=== PATIENT | female | born 2000 | race Caucasian/White ===

== ENCOUNTER 2021-01-10 10:50 | Emergency (ER) | payer OTHER, SELFPAY ==
[2021-01-10 10:55] VITALS: BP 137/82; PULSE 85; RESP 14; TEMP 37.1; O2SAT 100; BMI 19.5
--- NOTE | 2021-01-10 10:58 | DI.US.S_ITS ---
PROCEDURE: US OB <= 14 WEEKS FETUS INDICATIONS: BLEEDING OUTSIDE/PRIOR DATING DATA: Last menstrual period (LMP): Not available. LMP-based estimated date of delivery (KARIN): Not available . First dating scan (date and location): 01/10/2021 at . Estimated date of delivery (KARIN) from first dating scan: 07/14/2021. TECHNIQUE: Real-time scanning was performed of the fetus and maternal pelvic organs, with image documentation. COMPARISON: None. FINDINGS: Embryo: There is a single living IUP. heart rate is 159 BPM. BPD: 13 weeks 4 days HC: 13 weeks 5 days AC: 13 weeks 6 days FL: 12 weeks 6 days The estimated gestational age is 13 weeks 4 days. No perigestational bleed. Measurement variability in dating: +/- 4 weeks by LMP, +/- 7 days by mean sac diameter (use before 6 weeks gestation if crown-rump length not able to be measured), +/- 5 days by crown-rump length (up to 8 weeks 6 days gestation), +/- 7 days by crown-rump length (up to 13 weeks 6 days gestation). Maternal organs: Ovaries were not examined. IMPRESSION: 1. A single living intrauterine gestation with an estimated gestational age of 13 weeks 4 days corresponding to ultrasound KARIN 01/10/2021. 2. No perigestational bleed. Dictated by: Pepe Grover M.D. on 01/10/2021 at 13:30 Approved by: Pepe Grover M.D. on 01/10/2021 at 13:33
[2021-01-10 11:35] LABS: Add Manual Diff / Slide Review NO; Basophils Absolute Auto 0 /uL (0-100); Basophils Percent Auto 0.3 % (0-2); Eosinophils Absolute Auto 0 /uL (0-450); Eosinophils Percent Auto 0.5 % (2-4); Hematocrit 37.1 % (36-46); Hemoglobin 12.4 g/dL (12.0-16.0); Lymphocytes Absolute Auto 1400 /uL (1100-4500); Lymphocytes Percent Auto 23.4 % (25-40); Mean Corpuscular HGB Conc 33.5 % (30-36); Mean Corpuscular Hemoglobin 28.8 PG (26-34); Monocytes Absolute Auto 300 /uL (0-900); Monocytes Percent Auto 5.3 % (3-14); Neutrophils Absolute Auto 4200 /uL (1500-7000); Neutrophils Percent Auto 70.5 % (50-75); Platelet Count 190 X10^3/uL (150-400); Red Blood Cell Count 4.31 X10^6/uL (4.0-5.2); Red Cell Distribution Width 13.1 % (11.6-14.8); White Blood Cell Count 5.9 X10^3/uL (4.5-11.0)
[2021-01-10 11:44] LABS: Alanine Aminotransferase 13 IU/L (<35); Albumin 4.2 g/dL (3.5-5.0); Albumin Globulin Ratio 1.5 (1.0-2.8); Alkaline Phosphatase 38 U/L (38-126); Aspartate Aminotransferase 20 IU/L (14-36); BUN Creatinine Ratio 16.7 (6-22); Bilirubin Total 0.6 mg/dL (0.2-1.3); Blood Urea Nitrogen 8 mg/dL (7-17); Calcium 9.4 mg/dL (8.4-10.2); Carbon Dioxide 20 mmol/L (22-32); Chloride 106 mmol/L (98-107); Estimated Glomerular Filt Rate > 60.0 mL/min (>60); Globulin 2.8 g/dL (1.7-4.1); Glucose 99 mg/dL (70-100); HEMOLYSIS < 15 (0-50); Potassium 3.7 mmol/L (3.4-5.1); Sodium 136 mmol/L (137-145)
[2021-01-10 12:26] LABS: HCG Quantitative /Beta subunit 134990 mIU/mL
[2021-01-10 12:36] VITALS: PULSE 97; O2SAT 98
[2021-01-10 12:37] VITALS: BP 120/63; PULSE 96; O2SAT 99
--- NOTE | 2021-01-10 13:54 | ED.PREGNANCY ---
HPI - General Chief complaint: Urogenital-Female Stated complaint: 12 weeks bleeding x3days Time Seen by Provider: 01/10/21 13:54 Source: patient Mode of arrival: Ambulatory Limitations: no limitations History of Present Illness HPI Narrative: Patient is a 20-year-old female presenting with 3 days of vaginal bleeding. She was actually seen and evaluated 3 days ago at [facility] she had an ultrasound which showed single live IUP P with a anterior placenta is. She was discharged followed up with her OBGYN there was a transvaginal ultrasound performed which confirmed an anterior placenta. Today she said that she had increased blood and blood clots. She has no abdominal pain dizziness or lightheadedness. She denies any nausea or vomiting. She is going through a pad about every 3 hours. MD Complaint: vaginal bleeding Pain Consistency: intermittent Related Data Allergies Allergy/AdvReac Type Severity Reaction Status Date / Time No Known Drug Allergies Allergy Verified 01/10/21 10:59 Review of Systems Review of Systems ROS Unobtainable: All systems reviewed & are unremarkable except as noted in HPI and below Constitutional Constitutional: Denies chills, Denies fever(s), Denies lethargy and Denies weakness ENT Ears, Nose, Mouth, and Throat: Denies vertigo and Denies dizziness Cardiovascular Cardiovascular: Denies chest pain, Denies irregular heart rhythm, Denies lightheadedness, Denies palpitations, Denies dyspnea, Denies dyspnea on exertion and Denies orthopnea Respiratory Respiratory: Denies cough, Denies dyspnea, Denies dyspnea on exertion and Denies wheezing Genitourinary Genitourinary: Reports as per HPI Genitourinary: Reports as per HPI Musculoskeletal Musculoskeletal: Denies arthralgias and Denies back pain Integumentary/Breasts Skin/Breast: Denies pruritus, Denies erythema, Denies rash and Denies wounds Neurologic Neurologic: Denies vertigo, Denies dizziness and Denies weakness Endocrine Endocrine: Denies palpitations Allergic/Immunologic Allergic/Immunologic: Denies wheezing PMFSH - Past Medical History Medical history: Reports no medical history 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 HEENT: Head atraumatic,EOMI, pupils reactive, face symmetric, moist mucous membranes CARDIOVASCULAR: Regular rate and rhythm without murmurs, rubs or gallops. RESPIRATORY: Breath sounds equal bilaterally, no wheezes rales or rhonchi. ABDOMEN: Soft, nontender. Normoactive bowel sounds all 4 quadrants. No guarding or rebound. EXTREMITIES: Normal range of motion, no clubbing or edema. Neurovascularly intact NEUROLOGICAL: Alert and oriented x4.Normal gait and speech. SKIN: Warm, dry, no laceration, no petechiae, no rashes or lesions. Course Orders Ordered: ED Orders 01/10/21 10:58 US OB <= 14 weeks fetus Stat 01/10/21 11:15 ABO RH Type Stat Complete Blood Count AUTO DIFF Stat Comprehensive Metabolic Panel Stat HCG Quantitative /Beta subunit Stat Vital Signs Vital signs: Vital Signs - 8 hr 01/10/21 10:55 01/10/21 12:36 01/10/21 12:37 Temperature 98.8 F Pulse Rate 85 97 H 96 H Respiratory Rate 14 Blood Pressure 137/82 120/63 Pulse Oximetry 100 98 99 01/10/21 14:21 Temperature Pulse Rate 90 Respiratory Rate 16 Blood Pressure 122/65 Pulse Oximetry 99 MDM - OB/Uterine Contractions Lab Data Attestation: I reviewed the patient's lab results. Result diagrams: 01/10/21 11:15 01/10/21 11:15 Labs: Lab Results 01/10/21 01/10/21 01/10/21 Range/Units 11:15 11:15 11:15 WBC 5.9 (4.5-11.0) X10^3/uL RBC 4.31 (4.0-5.2) X10^6/uL Hgb 12.4 (12.0-16.0) g/dL Hct 37.1 (36-46) % MCV 86.0 (80-100) fL MCH 28.8 (26-34) PG MCHC 33.5 (30-36) % RDW 13.1 (11.6-14.8) % Plt Count 190 (150-400) X10^3/uL Neut % (Auto) 70.5 (50-75) % Lymph % (Auto) 23.4 L (25-40) % [place] % (Auto) 5.3 (3-14) % Eos % (Auto) 0.5 L (2-4) % Baso % (Auto) 0.3 (0-2) % Neut # (Auto) 4200 (9993-9137) /uL Lymph # (Auto) 1400 (6596-0802) /uL [place] # (Auto) 300 (0-900) /uL Eos # (Auto) 0 (0-450) /uL Baso # (Auto) 0 (0-100) /uL Sodium 136 L (137-145) mmol/L Potassium 3.7 (3.4-5.1) mmol/L Chloride 106 (98-107) mmol/L Carbon Dioxide 20 L (22-32) mmol/L BUN 8 (7-17) mg/dL Creatinine 0.48 L (0.52-1.04) mg/dL Estimated GFR > 60.0 (>60) mL/min BUN/Creatinine Ratio 16.7 (6-22) Glucose 99 (70-100) mg/dL Calcium 9.4 (8.4-10.2) mg/dL Total Bilirubin 0.6 (0.2-1.3) mg/dL AST 20 (14-36) IU/L ALT 13 (<35) IU/L Alkaline Phosphatase 38 (38-126) U/L Total Protein 7.0 (6.3-8.2) g/dL Albumin 4.2 (3.5-5.0) g/dL Globulin 2.8 (1.7-4.1) g/dL Albumin/Globulin Ratio 1.5 (1.0-2.8) HCG, Quant 824011 mIU/mL Blood Type O Positive Urine Dip Bedside Urine Glucose Negative Bedside Urine Bilirubin - Negative Bedside Urine Ketone - Negative Urine Specific [place] 1.015 Bedside Urine Occult Blood ++ Bedside Urine pH 6 Bedside Urine Protein - Negative Bedside Urine Urobilinogen - Negative Bedside Urine Nitrite - Negative Bedside Urine Leukocytes - Negative Esterase Imaging Data US - OB: Radiologist's Impression: PROCEDURE: US OB <= 14 WEEKS FETUS INDICATIONS: BLEEDING OUTSIDE/PRIOR DATING DATA: Last menstrual period (LMP): Not available. LMP-based estimated date of delivery (KARIN): Not available . First dating scan (date and location): 01/10/2021 at . Estimated date of delivery (KARIN) from first dating scan: 07/14/2021. TECHNIQUE: Real-time scanning was performed of the fetus and maternal pelvic organs, with image documentation. COMPARISON: None. FINDINGS: Embryo: There is a single living IUP. heart rate is 159 BPM. BPD: 13 weeks 4 days HC: 13 weeks 5 days AC: 13 weeks 6 days FL: 12 weeks 6 days The estimated gestational age is 13 weeks 4 days. No perigestational bleed. Measurement variability in dating: +/- 4 weeks by LMP, +/- 7 days by mean sac diameter (use before 6 weeks gestation if crown-rump length not able to be measured), +/- 5 days by crown-rump length (up to 8 weeks 6 days gestation), +/- 7 days by crown-rump length (up to 13 weeks 6 days gestation). Maternal organs: Ovaries were not examined. IMPRESSION: 1. A single living intrauterine gestation with an estimated gestational age of 13 weeks 4 days corresponding to ultrasound KARIN 01/10/2021. 2. No perigestational bleed. Dictated by: Pepe Grover M.D. on 01/10/2021 at 13:30 Approved by: Pepe Grover M.D. on 01/10/2021 at 13:33 MDM Narrative Medical decision making narrative: Records from [facility] have been received and reviewed by myself. At this time patient is hemodynamically stable. She has multiple studies that show she has a low lying placenta. At this time recommend follow-up with her OBGYN for a 2nd time. Discussed warning signs with her and when to return to the emergency department Discharge Plan Departure Patient Disposition: Home Clinical Impression: Vaginal bleeding Instructions: Early Bleeding Activity Restrictions/Additional Instructions: [id number] *You have been diagnosed with vaginal bleeding *What to do: Bleeding is likely due to a low lying placenta. This should resolve as her progresses. Continue pelvic rest which is nothing in her out of vagina. May try and elevate your legs this may also help improve placental circulation. Monitor bleeding. *Continue to take medications as directed *Follow up with your primary care provider in 2-3 days, please call your OBGYN to schedule follow-up appointment *Return to ER if you should have heavy vaginal bleeding more than 1-2 pads in in hour. Severe cramping, dizziness, lightheadedness or any new, worsening or concerning symptoms Referrals: [facility] [address] [employer] [facility] [employer]BBER TILE FLOOR LAYER [Provider Group] Stand Alone Forms: Work Release Note
[2021-01-10 14:21] VITALS: BP 122/65; PULSE 90; RESP 16; O2SAT 99
== END 2021-01-10 14:21 | disposition home or self-care (01) ==
PROVIDERS: Emergency Provider Emergency Medicine
DX: O46.91 Antepartum hemorrhage, unspecified, first trimester (principal); Z3A.12 12 weeks gestation of pregnancy
CPT/HCPCS: 36415; 76801; 80053; 81003; 84702; 85025; 86900; 86901; 99284

== ENCOUNTER 2021-01-15 08:19 | Emergency (ER) | payer OTHER, SELFPAY ==
--- NOTE | 2021-01-15 08:27 | ED_ITS ---
HPI - General Chief complaint: Urogenital-Female Stated complaint: BLEEDING AND CRAMPING, 13 WKS, 3 DAYS Time Seen by Provider: 01/15/21 08:27 History of Present Illness HPI Narrative: 20-year-old at 13 weeks, O+ blood type, presents with bleeding and cramping. She was seen on January 10 with similar complaints and was seen on January 07 at [facility] with similar complaints. [facility] had done an ultrasound that showed a single live IUP with anterior, low- lying placenta. She was seen in follow-up the next day by her OBGYN with a transvaginal ultrasound confirming anterior low-lying placenta.. Ob ultrasound on the showed no aaliyah gestational bleed and a single IUP. Related Data Allergies Allergy/AdvReac Type Severity Reaction Status Date / Time No Known Drug Allergies Allergy Verified 01/10/21 10:59 Review of Systems Review of Systems Narrative: Pertinent positive and negative findings as per HPI Remainder of review of systems is otherwise unremarkable for Constitutional: Fevers, chills, weakness, her dizziness when standing up CV: Chest pain, palpitations, Respiratory: Cough, wheeze, dyspnea GI: Nausea, vomiting, diarrhea, : Dysuria, hematuria, PMFSH - Past Medical History Medical history: Reports no medical history Exam Narrative Exam Narrative: General: Alert appropriate in no acute distress Respiratory: Able to speak in full sentences, no obvious respiratory distress Skin: No obvious rashes, warm and dry Neurologic: Grossly intact no obvious asymmetries or abnormalities Psych: appropriate insight and affect, cooperative Bedside ultrasound: Anterior low-lying placenta with 3 mm x 1 cm area of bleed just above the internal cervical os. The bleed does not appear to track further up the placenta/anterior wall of the uterus. Cervix itself measures 4.1 cm and there is no funneling appreciated. Fetus is moving an active with a heart rate at 150 and appropriate amounts of amniotic fluid appreciated. Initial Vital Signs Initial Vital Signs: Vital Signs Temperature 99.0 F 01/15/21 08:34 Pulse Rate 85 01/15/21 08:34 Respiratory Rate 16 01/15/21 08:34 Blood Pressure 131/80 01/15/21 08:34 Pulse Oximetry 100 01/15/21 08:34 Course Vital Signs Vital signs: Vital Signs - 8 hr 01/15/21 08:34 Temperature 99.0 F Pulse Rate 85 Respiratory Rate 16 Blood Pressure 131/80 Pulse Oximetry 100 MDM - OB/Uterine Contractions MDM Narrative Medical decision making narrative: 20-year-old at 13 and half weeks gestational age with low-lying anterior placenta and intermittent vaginal bleeding since 9 weeks. She has been on pelvic rest. She has had multiple ultrasounds showing viable fetus and confirming the low-lying anterior placenta. Today she had some cramping associated with some spotting. She notes this weekend she had had minimal symptoms. She called her on-call OBGYN who asked that she come to the ER for further evaluation. Bedside ultrasound looks like the anterior lip of the placenta perhaps has a very small subchorionic hemorrhage with a viable fetus. Care is reviewed with Dr. Tovar who is OBGYN on-call today. Did not have any additional suggestions be on what we were doing already and agreed that a week to follow-up as scheduled on the , was appropriate. Discharge Plan Departure Patient Disposition: Home Clinical Impression: Vaginal bleeding Qualifiers: Weeks of gestation: 13 weeks Qualified Code(s): Z3A.13 - 13 weeks gestation of Instructions: DI for Vaginal Bleeding During Activity Restrictions/Additional Instructions: Thank you for coming in today Your baby looks beautiful. Your placenta it looks as described previously. You likely will continue to have a small bit of bleeding intermittently until your uterus gross enough that the placenta is further away from the opening of your cervix. One week for follow-up, as scheduled on January 22 is very appropriate. Please keep this appointment with Dr. Mendenhall. If you have changing, worsening or new symptoms it is still appropriate to come back to the emergency department. Please make sure you continue pelvic rest which means no fingers, toys, penis is in your vagina, no orgasm and try not to lift more than 10 lb. Good luck with the rest of your ! Referrals: Tatum Mendenhall DO [Physician] -
[2021-01-15 08:34] VITALS: BP 131/80; PULSE 85; RESP 16; TEMP 37.2; O2SAT 100
--- NOTE | 2021-01-15 08:52 | PC.NURSE ---
dr. tavares did a bedside US.
== END 2021-01-15 08:59 | disposition home or self-care (01) ==
PROVIDERS: Emergency Provider Emergency Medicine
DX: O46.91 Antepartum hemorrhage, unspecified, first trimester (principal); Z3A.13 13 weeks gestation of pregnancy
CPT/HCPCS: 99281

== ENCOUNTER → 2021-01-22 14:16 | Outpatient (CLI) | payer OTHER, SELFPAY ==
[2021-01-22 17:09] LABS: Urine N gonorrhoeae NOT DETECTED
[2021-01-22 17:24] LABS: Urine Chlamydia NOT DETECTED
== END ==
PROVIDERS: Visit Provider Family Medicine
DX: Z11.3 Encounter for screening for infections with a predominantly sexual mode of transmission (principal); Z11.8 Encounter for screening for other infectious and parasitic diseases; Z3A.14 14 weeks gestation of pregnancy
CPT/HCPCS: 87491; 87591

== ENCOUNTER → 2021-01-26 15:58 | Outpatient (CLI) | payer OTHER, SELFPAY ==
[2021-01-26 16:13] LABS: RBC Urine None Seen (0-5/HPF)
[2021-01-26 16:30] LABS: Appearance Urine UA CLEAR; Bilirubin Urine UA NEGATIVE (NEGATIVE); Color Urine UA YELLOW; Glucose Urine UA NEGATIVE (Negative); Ketones Urine UA NEGATIVE (NEGATIVE); Leukocyte Esterase Urine UA NEGATIVE (NEGATIVE); Nitrite Urine UA NEGATIVE (Negative); Occult Blood Urine UA TRACE-LYSED (Negative); Protein Urine UA NEGATIVE (Negative); Urobilinogen Urine UA 0.2 E.U./dL (0.2)
[2021-01-26 16:42] LABS: Amorphous Sediment Urine 1+; Bacteria Urine Moderate (10-30); Mucus Urine 1+ (Negative); Squamous Epithelial Cell Urine 1-5 /HPF (0-5/HPF); WBC Urine 5-10/HPF (0-5/HPF)
[2021-01-26 16:43] LABS: Culture Indicated Urine Specimen Cultured
== END ==
PROVIDERS: Referring Provider Family Medicine; Visit Provider Family Medicine
DX: Z34.90 Encounter for supervision of normal pregnancy, unspecified, unspecified trimester (principal); R10.2 Pelvic and perineal pain; Z3A.13 13 weeks gestation of pregnancy
CPT/HCPCS: 81001; 87086

== ENCOUNTER → 2021-02-02 12:43 | Outpatient (CLI) | payer OTHER, SELFPAY ==
--- NOTE | 2021-02-02 12:44 | DI.US.S_ITS ---
PROCEDURE: US OB FOLLOW UP INDICATIONS: FOLLOW UP FROM 01/10/2021 OUTSIDE/PRIOR DATING DATA: First dating scan (date and location): 01/10/2021, [facility] . Estimated date of delivery (KARIN) from first dating scan: 07/14/2021 . TECHNIQUE: Real-time scanning was performed of the fetus, with image documentation. Endovaginal scanning: Not performed COMPARISON: None. FINDINGS: A single living intrauterine gestation is present. Presentation: Vertex. Placenta: Placental position is anterior , without previa. Amniotic fluid index: 11.0 cm, normal range is 5-24 cm. heart rate: 141 beats per minute. Maternal cervical canal: Not well visualized. Normal lower limit is 2.5 cm. Estimated gestational age from initial scan: 16 week 6 day . IMPRESSION: Single live intrauterine consistent with a 16 week 6 day gestation. No evidence of perigestational bleed. Dictated by: Kayden Suárez M.D. on 02/02/2021 at 12:44 Approved by: Kayden Suárez M.D. on 02/02/2021 at 12:50
== END ==
PROVIDERS: Referring Provider Family Medicine; Visit Provider Family Medicine
DX: O20.9 Hemorrhage in early pregnancy, unspecified (principal); Z3A.16 16 weeks gestation of pregnancy
CPT/HCPCS: 76816

== ENCOUNTER → 2021-03-02 09:06 | Outpatient (CLI) | payer OTHER, SELFPAY ==
--- NOTE | 2021-03-02 09:07 | DI.US.S_ITS ---
PROCEDURE: US OB >= 14 WEEKS FETUS INDICATIONS: ANATOMY OUTSIDE/PRIOR DATING DATA: First dating scan (date and location): 01/10/2021 . Estimated date of delivery (KARIN) from first dating scan: 07/14/2021 . TECHNIQUE: Real-time scanning was performed of the fetus, with image documentation and biometric measurements. Endovaginal scanning: No COMPARISON: None. FINDINGS: General: A single living intrauterine gestation is present. Presentation: Vertex. Placenta: Placental position is anterior , without previa. Amniotic fluid index: 14.1 cm, normal range is 5-24 cm. heart rate: 139 beats per minute. Maternal cervical canal: 3.7 cm long. Normal lower limit is 2.5 cm. biometrics: Biparietal diameter: 20 weeks 3 days Head circumference: 20 weeks 1 day Abdominal circumference: 20 weeks 4 days Femur length: 20 weeks 1 day Estimated gestational age from initial scan: 20 weeks 6 days Composite gestational age from present scan: 20 weeks 2 days Estimated weight and percentile: 346 g; 19 percentile Measurement variability for biometric dating: +/- 7 days from 14 weeks to 15 weeks 6 days gestation, +/- 10 days from 16 weeks to 21 weeks 6 days gestation, +/- 2 weeks from 22 weeks to 27 weeks 6 days gestation, +/- 3 weeks for 28 weeks gestation or later. weight reference: 4500 g or EFW >90/95% is considered macrosomia or large for gestational age. EFW <10% is small for gestational age. EFW 5% or less is considered intra-uterine growth restriction. Anatomic survey: Neuro: Ventricles are non-dilated at less than 10 mm. Cisterna magna is normal at 3-11 mm. Cerebellum is normal in size and morphology. Nuchal skin fold: Normal at less than 6 mm between 14-21 weeks gestational age. Face: Nose and lips, facial profile are normal. Spine: No evidence for spina bifida. Heart: 4-chambered heart is present, with normal ventricular outflow tracts. Diaphragm: Diaphragm is intact. Stomach: Left-sided stomach is present. Kidneys: No hydronephrosis. Normal is less than 5 mm in 2nd trimester, less than 7 mm in 3rd trimester. Cord: 3-vessel cord has orthotopic insertion. Marginal cord insertion site roughly 9 mm from the placental edge. Bladder: Normal in size. Extremities: All 4 extremities identified. IMPRESSION: 1. Normal interval growth. 2. Normal anatomic survey. 3. Marginal cord insertion site. Dictated by: Harley RODRIGUES Interpreted: Jone Pascal MD on 03/02/2021 at 11:41 Transcribed by: ARIADNE on 03/02/2021 at 14:06 Approved by: Jone Pascal M.D. on 03/02/2021 at 17:00
== END ==
PROVIDERS: Referring Provider Family Medicine; Visit Provider Family Medicine
DX: Z36.89 Encounter for other specified antenatal screening (principal); Z3A.20 20 weeks gestation of pregnancy
CPT/HCPCS: 76811

== ENCOUNTER 2021-03-20 14:40 | Observation (INO) | payer OTHER, SELFPAY ==
--- NOTE | 2021-03-20 15:17 | DI.US.S_ITS ---
PROCEDURE: US OB LIMITED INDICATIONS: CRAMPING OUTSIDE/PRIOR DATING DATA: Last menstrual period (LMP): Mild available. LMP-based estimated date of delivery (KARIN): Not available. First dating scan (date and location): 01/10/2021 at . Estimated date of delivery (KARIN) from first dating scan: 07/14/2021. TECHNIQUE: Real-time scanning was performed of the fetus, with image documentation and biometric measurements. Endovaginal scanning: Performed. COMPARISON: None. FINDINGS: General: A single living intrauterine gestation is present. Presentation: Transverse head to the left. Placenta: Placental position is anterior, without previa. Amniotic fluid index: 13.2 cm, normal range is 5-24 cm. heart rate: 133 beats per minute. Maternal cervical canal: 2.8 cm long. Normal lower limit is 2.5 cm. biometrics: Not performed. Estimated gestational age from initial scan: 23 weeks 3 days. Other: Possible venous lakes in placenta. IMPRESSION: 1. A single living intrauterine gestation is present. 2. Cervix is shortened measuring 2.8 cm long. 3. Possible venous lakes in the placenta. Dictated by: Pepe Grover M.D. on 03/20/2021 at 16:48 Approved by: Pepe Grover M.D. on 03/20/2021 at 16:56
--- NOTE | 2021-03-20 16:05 | PM.OBTRLD ---
Visit Information Visit Information Date of evaluation: 03/20/21 Primary OB Provider: Tatum Mendenhall On-call OB Provider: Lorenzo Kramer Reason for Evaluation: Yes pre-term labor Comments/Additional reasons for admission: Patient is a 21-year-old at 22 weeks and 4 days gestation who presented to clinic today with lower abdominal pain and cramping though denied bleeding or leaking. Pain was more severe last night in her left upper quadrant. Today it is mostly lower abdominal with slight pain in her left upper quadrant. was complicated by bleeding in the first trimester which resolved and has not recurred. She has not been sexually active. Denies vaginal discharge or urinary symptoms. Denies diarrhea or vomiting. Vital Signs Vital Signs: Temperature 36.4? blood pressure 105/60 heart rate 85 PFSH Medical History (Updated 03/20/21 @ 18:17 by Tatum Mendenhall DO) Iron deficiency anemia (~2018) Nasal fracture (~06/2018) Surgical History (Updated 02/02/21 @ 20:09 by Ernestine Duffy) Anesthesia Hx of tonsillectomy (~2008) Status post breast reduction (~2016) Family History Father Myocardial infarction Stented coronary artery Grandmother Breast cancer Mother No problems noted. Grandmother No problems noted. Grandfather Diabetes mellitus Grandfather Stented coronary artery Social History marital status: number of children: 0 household members: spouse lives independently: Yes caregiver/support person: No housing: house pets and animals: Yes (1 dog: safe & aware. 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 ) Type(s) of exercise: walking (Usually 3-4 times a week.) frequency: does not exercise (Currently refraining from exercise due to vaginal bleeding. ) Evaluation Evaluation Baseline heart rate: 135 Variability: Moderate (11-25) monitor accelerations: Present Monitor Decelerations: Absent Category of Tracing: Reactive Diagnosis, Plan/Disposition Final Diagnosis (1) 22 weeks gestation of : Status: Acute (2) contractions: Status: Acute Plan/Disposition Plan: 21-year-old at 22 weeks and 4 days gestation with concern for contractions and labor. She did have contractions on the monitor though did not feel them consistently. She was monitored in the center for 2-1/2 hours. Urine was negative. Contractions dissipated. She was having some at the end of her stay but denied feeling them at all. Ultrasound was completed and significant for cervical length of 2.8 cm, АЛЕКСАНДР of 13.2 and possible placental lakes. She has not had any bleeding recently though did have considerable bleeding early in the . fibronectin was negative. Discussed with patient that she does have a slightly shortened cervix but overall reassuring with negative FN and no funneling of the cervix. Advised her to rest for the next week and hydrate well. Discussed with Dr. Kramer, bow making machine operator who recommended repeat ultrasound for cervical length in a week and follow up in clinic. Patient counseled extensively to call or return for cramping, severe pain, contractions, bleeding or leaking of fluid. She voiced her understanding and was very appreciative. OB Disposition: home
[2021-03-20 17:02] LABS: Fetal Fibronectin Negative
== END 2021-03-20 17:40 | disposition home or self-care (01) ==
PROVIDERS: Admitting Provider Family Medicine; Referring Provider Family Medicine; Visit Provider Family Medicine
DX: O47.02 False labor before 37 completed weeks of gestation, second trimester (principal); Z3A.22 22 weeks gestation of pregnancy
CPT/HCPCS: 59025; 59050; 76815; 76817; 82731; G0378; G0379

== ENCOUNTER → 2021-03-23 13:15 | Outpatient (CLI) | payer OTHER, SELFPAY ==
--- NOTE | 2021-03-23 13:20 | DI.US.S_ITS ---
PROCEDURE: US OB LIMITED INDICATIONS: CRAMPING; CERVICAL LENGTH OUTSIDE/PRIOR DATING DATA: Last menstrual period (LMP): Unknown. LMP-based estimated date of delivery (KARIN): Unknown. First dating scan (date and location): 01/10/2021. Estimated date of delivery (KARIN) from first dating scan: 07/14/2021. TECHNIQUE: Real-time scanning was performed of the fetus, with image documentation. COMPARISON: [facility], , OB LIMITED, 03/20/2021, 14:49. FINDINGS: A single living intrauterine gestation is present. Presentation: Vertex Placenta: Placental position is anterior, without previa. Amniotic fluid index: Not measured. Amount of amniotic fluid is visually within normal limits. heart rate: 137 beats per minute. Maternal cervical canal: 3.3 cm long. Estimated gestational age from initial scan: 23 weeks, 6 days. IMPRESSION: Single live intrauterine with fetus in vertex presentation. heart rate is 137 beats per minute. Visually normal amount of amniotic fluid. Cervix is closed. Cervical length is 3.3 cm and is within normal limits. Dictated by: Ryan Brian M.D. on 03/23/2021 at 14:09 Approved by: Ryan Brian M.D. on 03/23/2021 at 14:11
== END ==
PROVIDERS: PCP Family Medicine; Referring Provider Family Medicine; Visit Provider Family Medicine
DX: Z36.86 Encounter for antenatal screening for cervical length (principal); Z3A.23 23 weeks gestation of pregnancy
CPT/HCPCS: 76815

== ENCOUNTER → 2021-04-09 07:13 | Outpatient (CLI) | payer OTHER, SELFPAY ==
--- NOTE | 2021-04-09 07:14 | DI.US.S_ITS ---
PROCEDURE: US OB LIMITED INDICATIONS: EFW; CERVICAL LENGTH, АЛЕКСАНДР OUTSIDE/PRIOR DATING DATA: First dating scan (date and location): 01/10/2021 at [facility]. Estimated date of delivery (KARIN) from first dating scan: 07/14/2021. TECHNIQUE: Real-time scanning was performed of the fetus, with image documentation and biometric measurements. Endovaginal scanning: Not performed. COMPARISON: [facility], , OB LIMITED, 03/23/2021, 13:50. FINDINGS: General: A single living intrauterine gestation is present. Presentation: Vertex. Placenta: Placental position is anterior, without previa. Amniotic fluid index: 13.8 cm, normal range is 5-24 cm. Largest vertical pocket is 5.2 cm. heart rate: 135 beats per minute. Maternal cervical canal: 3.1 cm long and closed. Normal lower limit is 2.5 cm. biometrics: Biparietal diameter: 6.5 cm, 26 weeks 1 day Head circumference: 23.9 cm, 26 weeks 0 days Abdominal circumference: 21.1 cm, 25 weeks 5 days Femur length: 4.7 cm, 25 weeks 5 days Estimated gestational age from initial scan: 26 weeks 2 days. Composite gestational age from present scan: 25 weeks 6 days. Estimated weight and percentile: 847 grams, 19th percentile Measurement variability for biometric dating: +/- 7 days from 14 weeks to 15 weeks 6 days gestation, +/- 10 days from 16 weeks to 21 weeks 6 days gestation, +/- 2 weeks from 22 weeks to 27 weeks 6 days gestation, +/- 3 weeks for 28 weeks gestation or later. weight reference: 4500 g or EFW >90/95% is considered macrosomia or large for gestational age. EFW <10% is small for gestational age. EFW 5% or less is considered intra-uterine growth restriction. Other: Not applicable. IMPRESSION: 1. Single live intrauterine with appropriate interval growth. 2. Cervical length normal at 3.1 cm. 3. Amniotic fluid index within normal limits. Dictated by: Bharathi Grijalva M.D. on 04/09/2021 at 9:31 Approved by: Bharathi Grijalva M.D. on 04/09/2021 at 9:35
== END ==
PROVIDERS: Referring Provider Family Medicine; Visit Provider Family Medicine
DX: Z36.86 Encounter for antenatal screening for cervical length (principal); Z3A.25 25 weeks gestation of pregnancy
CPT/HCPCS: 76815

== ENCOUNTER → 2021-04-21 08:12 | Outpatient (CLI) | payer OTHER, SELFPAY ==
[2021-04-21 11:07] LABS: Hematocrit 30.2 % (36-46); Hemoglobin 10.1 g/dL (12.0-16.0)
[2021-04-21 11:22] LABS: GTT (PREG) 1 Hour PP 50gm Dose 65 mg/dL (76-139)
== END ==
PROVIDERS: Referring Provider Family Medicine; Visit Provider Family Medicine
DX: Z34.90 Encounter for supervision of normal pregnancy, unspecified, unspecified trimester (principal); Z3A.26 26 weeks gestation of pregnancy
CPT/HCPCS: 36415; 82950; 85014; 85018

== ENCOUNTER 2021-05-09 10:35 | Observation (INO) | payer OTHER, SELFPAY ==
[2021-05-09 12:24] LABS: Appearance Urine UA CLEAR; Bilirubin Urine UA NEGATIVE (NEGATIVE); Glucose Urine UA NEGATIVE (Negative); Ketones Urine UA NEGATIVE (NEGATIVE); Leukocyte Esterase Urine UA NEGATIVE (NEGATIVE); Nitrite Urine UA NEGATIVE (Negative); Occult Blood Urine UA NEGATIVE (Negative); Protein Urine UA NEGATIVE (Negative); Specific Gravity Urine UA <=1.005 (1.000-1.035); Urobilinogen Urine UA 0.2 E.U./dL (0.2)
[2021-05-09 12:25] LABS: Color Urine UA STRAW
--- NOTE | 2021-05-09 12:55 | DI.US.S_ITS ---
PROCEDURE: US OB >= 14 WEEKS FETUS INDICATIONS: CERVICAL LENGTH OUTSIDE/PRIOR DATING DATA: Last menstrual period (LMP): Not known. LMP-based estimated date of delivery (KARIN): Not applicable. First dating scan (date and location): January 10, 2021. Estimated date of delivery (KARIN) from first dating scan: July 14, 2021. TECHNIQUE: Real-time scanning was performed of the fetus, with image documentation and biometric measurements. Endovaginal scanning: Performed COMPARISON: None. FINDINGS: General: A single living intrauterine gestation is present. Presentation: Vertex Placenta: Placental position is anterior, without previa. Amniotic fluid index: Not evaluated heart rate: 141 beats per minute. Maternal cervical canal: Closed in 2.8 cm long. Normal lower limit is 2.5 cm. biometrics: Not evaluated in current exam Estimated gestational age from initial scan: 30 weeks 4 days. IMPRESSION: 1. Single living intrauterine . 2. Cervix closed and 2.8 centimeters in length. Dictated by: Tomasa Hunter MD, PhD on 05/09/2021 at 14:40 Approved by: Tomasa Hunter MD, PhD on 05/09/2021 at 14:42
--- NOTE | 2021-05-09 13:15 | P.TNLD_ITS ---
Visit Information Visit Information Date of evaluation: 05/09/21 Primary OB Provider: Tatum Mendenhall On-call OB Provider: Connie Calabrese Reason for Evaluation: Yes pre-term labor Comments/Additional reasons for admission: 21yo at 29w5d who presented with increased cramping at home. She has not been timing it. She was in L&D for similar on 03/20 with no cervical dilation, negative fibronectin, and cervi teresita length of 2.8. Repeat cervical length the next week was increased. The pt reports the cramping is not as painful as it was then, but is still increased. She denies any vaginal bleeding or LOF. She is feeling her baby move regularly. She did just go on a long walk today. [facility] Medical History (Updated 03/26/21 @ 14:13 by Tatum Mendenhall DO) Iron deficiency anemia (~2018) Nasal fracture (~06/2018) Surgical History (Updated 02/02/21 @ 20:09 by Ernestine Duffy) Anesthesia Hx of tonsillectomy (~2008) Status post breast reduction (~2016) Family History Father Myocardial infarction Stented coronary artery Grandmother Breast cancer Mother No problems noted. Grandmother No problems noted. Grandfather Diabetes mellitus Grandfather Stented coronary artery Social History marital status: number of children: 0 household members: spouse lives independently: Yes caregiver/support person: No housing: house pets and animals: Yes (1 dog: safe & aware. 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 ) Type(s) of exercise: walking (Usually 3-4 times a week.) frequency: does not exercise (Currently refraining from exercise due to vaginal bleeding. ) Objective Labs Labs: Laboratory Results - last 24 hr 05/09/21 11:33 Urine Color Straw Urine Appearance Clear Urine pH 7.0 Ur Specific [place] <=1.005 Urine Protein Negative Urine Glucose (UA) Negative Urine Ketones Negative Urine Occult Blood Negative Urine Nitrate Negative Urine Bilirubin Negative Urine Urobilinogen 0.2 Ur Leukocyte Esterase Negative Evaluation Evaluation Baseline heart rate: 130 Variability: Moderate (11-25) monitor accelerations: Present Monitor Decelerations: Absent Comments: Contractions every 6-10 minutes Diagnosis, Plan/Disposition Final Diagnosis (1) contractions: Status: Acute Plan/Disposition Plan: 21yo at 29w5d who presented with increased cramping at home. Contractions spaced signficantly with prolonged monitoring. Cervical length stable at 2.8. Recommend relative rest at home for the pt. Discussed hydration. F/U next week with Dr Mendenhall scheduled. Safe for d/c home. OB Disposition: home
== END 2021-05-09 13:39 | disposition home or self-care (01) ==
PROVIDERS: Admitting Provider Family Medicine; Referring Provider Family Medicine; Visit Provider Family Medicine
DX: O47.03 False labor before 37 completed weeks of gestation, third trimester (principal); Z3A.29 29 weeks gestation of pregnancy
CPT/HCPCS: 59025; 59050; 76811; 76817; 81003; G0378; G0379

== ENCOUNTER 2021-06-01 20:46 | Outpatient (CLI) | payer OTHER, SELFPAY | END 2021-06-01 21:27 | disposition home or self-care (01) | LOC: OB 06-05 11:59 | PROVIDERS: Referring Provider Family Medicine; Visit Provider Family Medicine | DX: Z03.71 Encounter for suspected problem with amniotic cavity and membrane ruled out (principal); Z3A.33 33 weeks gestation of pregnancy | CPT/HCPCS: 59025; 84112; G0378; G0379 ==

== ENCOUNTER 2021-06-12 20:35 | Observation (INO) | payer OTHER, SELFPAY ==
[2021-06-12 21:01] LABS: Appearance Urine UA CLEAR; Bilirubin Urine UA NEGATIVE (NEGATIVE); Glucose Urine UA NEGATIVE (Negative); Ketones Urine UA NEGATIVE (NEGATIVE); Leukocyte Esterase Urine UA TRACE (NEGATIVE); Nitrite Urine UA NEGATIVE (Negative); Occult Blood Urine UA NEGATIVE (Negative); Protein Urine UA NEGATIVE (Negative); Specific Gravity Urine UA <=1.005 (1.000-1.035); Urobilinogen Urine UA 0.2 E.U./dL (0.2)
[2021-06-12 21:11] LABS: Color Urine UA Straw; pH Urine UA 6.5 (4.5-8.0)
[2021-06-12 21:12] LABS: Bacteria Urine Many (>30); Culture Indicated Urine Specimen Cultured; RBC Urine None Seen (0-5/HPF); WBC Urine 0-1/HPF (0-5/HPF)
--- NOTE | 2021-06-12 21:33 | P.TNLD_ITS ---
Visit Information Visit Information Date of evaluation: 06/12/21 Primary OB Provider: Tatum Mendenhall On-call OB Provider: Connie Calabrese Reason for Evaluation: Yes rule out labor Comments/Additional reasons for admission: 21yo at 34w4d who presented with regular cramping. Pt reports cramping starting around 2pm, approximately every 10 minutes. It is a 7/10 on the pain scale. She has a constant pain in her lower abdomen and an intermittent, more intense pain across the top of her fundus. She also had acute onset of more intense very low back pain. She denies any vaginal bleeding or LOF. She is feeling her baby move regularly. [facility] Medical History Iron deficiency anemia (~2018) Nasal fracture (~06/2018) Surgical History Anesthesia Hx of tonsillectomy (~2008) Status post breast reduction (~2016) Family History Father Myocardial infarction Stented coronary artery Grandmother Breast cancer Mother No problems noted. Grandmother No problems noted. Grandfather Diabetes mellitus Grandfather Stented coronary artery Social History marital status: number of children: 0 household members: spouse lives independently: Yes caregiver/support person: No housing: house pets and animals: Yes (1 dog: safe & aware. 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 ) Type(s) of exercise: walking (Usually 3-4 times a week.) frequency: does not exercise (Currently refraining from exercise due to vaginal bleeding. ) Objective Labs Labs: Laboratory Results - last 24 hr 06/12/21 20:48 Urine Color Straw Urine Appearance Clear Urine pH 6.5 Ur Specific [place] <=1.005 Urine Protein Negative Urine Glucose (UA) Negative Urine Ketones Negative Urine Occult Blood Negative Urine Nitrate Negative Urine Bilirubin Negative Urine Urobilinogen 0.2 Ur Leukocyte Esterase Trace H Urine RBC None seen Urine WBC 0-1/hpf Urine Bacteria Many (>30) H Ur Culture Indicated? Specimen cultured Evaluation Evaluation Baseline heart rate: 125 Variability: Moderate (11-25) monitor accelerations: Present Monitor Decelerations: Absent Diagnosis, Plan/Disposition Final Diagnosis (1) contractions: Status: Acute Plan/Disposition Plan: 21yo at 34w4d who presented with regular cramping. Pt with contractions every 9 minutes at arrival. U/A with many bacteria and trace LE, but otherwise negative. Will await culture result. Pts contractions did not improve with significant oral hydration, and urine was very dilute. Oral Nifedipine x 4 was administered, and the pts contractions resolved. She was monitored for a prolonged period after, without return of her contractions. She was discharged home with strict return precautions. She has f/u with her primary OB scheduled. OB Disposition: home
[2021-06-12] MEDS: NIFEdipine 10 MG CAPSULE PO ×4 (22:28→23:28)
== END 2021-06-12 23:58 | disposition home or self-care (01) ==
PROVIDERS: Admitting Provider Family Medicine; PCP Family Medicine; Referring Provider Family Medicine; Visit Provider Family Medicine
DX: O47.03 False labor before 37 completed weeks of gestation, third trimester (principal); Z3A.34 34 weeks gestation of pregnancy
CPT/HCPCS: 59025; 59050; 81001; 87086; G0378; G0379

== ENCOUNTER → 2021-06-25 09:59 | Outpatient (CLI) | payer OTHER, SELFPAY ==
[2021-06-26 09:38] LABS: Strep Grp B PCR NEG for Grp B Strep
== END ==
PROVIDERS: PCP Family Medicine; Visit Provider Family Medicine
DX: Z34.90 Encounter for supervision of normal pregnancy, unspecified, unspecified trimester (principal); Z3A.36 36 weeks gestation of pregnancy
CPT/HCPCS: 87653

== ENCOUNTER 2021-07-10 19:37 | Outpatient (CLI) | payer OTHER, SELFPAY ==
--- NOTE | 2021-07-10 21:05 | PM.OBTRLD ---
Visit Information Visit Information Date of evaluation: 07/10/21 Primary OB Provider: Tatum Mendenhall On-call OB Provider: Lorenzo Kramer Reason for Evaluation: Yes other Comments/Additional reasons for admission: 38 week EGA, R/O SROM earlier this afternoon [facility] Medical History Iron deficiency anemia (~2018) Nasal fracture (~06/2018) Surgical History Anesthesia Hx of tonsillectomy (~2008) Status post breast reduction (~2016) Family History Father Myocardial infarction Stented coronary artery Grandmother Breast cancer Mother No problems noted. Grandmother No problems noted. Grandfather Diabetes mellitus Grandfather Stented coronary artery Social History marital status: number of children: 0 household members: spouse lives independently: Yes caregiver/support person: No housing: house pets and animals: Yes (1 dog: safe & aware. 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 ) Type(s) of exercise: walking (Usually 3-4 times a week.) frequency: does not exercise (Currently refraining from exercise due to vaginal bleeding. ) Evaluation Evaluation Baseline heart rate: 120 Variability: Moderate (11-25) monitor accelerations: Present Monitor Decelerations: Absent Category of Tracing: Reactive Status: Category l Non-invasive Membranes Rupture Test: negative Comments: Patient not in labor, FHR tracing is reassuring, and no evidence of SROM. Diagnosis, Plan/Disposition Plan/Disposition Plan: Discharged home with instructions. FU with her FMOB. OB Disposition: home
== END 2021-07-10 20:45 | disposition home or self-care (01) ==
LOC: OB 07-12 07:37
PROVIDERS: PCP Family Medicine; Referring Provider Obstetrics & Gynecology; Visit Provider Obstetrics & Gynecology
DX: Z03.71 Encounter for suspected problem with amniotic cavity and membrane ruled out (principal); Z3A.38 38 weeks gestation of pregnancy
CPT/HCPCS: 59025; 84112; G0378; G0379

== ENCOUNTER 2021-07-18 18:29 | Inpatient (IN) | payer OTHER, SELFPAY ==
[2021-07-18] MEDS: DINOPROSTONE VAG (CERVIDIL) 10 MG VAG (19:26)
[2021-07-18 19:29] LABS: Add Manual Diff / Slide Review NO; Basophils Absolute Auto 0 /uL (0-100); Basophils Percent Auto 0.3 % (0-2); Eosinophils Absolute Auto 0 /uL (0-450); Eosinophils Percent Auto 0.3 % (2-4); Hematocrit 33.3 % (36-46); Hemoglobin 11.1 g/dL (12.0-16.0); Lymphocytes Absolute Auto 1900 /uL (1100-4500); Mean Corpuscular HGB Conc 33.4 % (30-36); Mean Corpuscular Volume 84.1 fL (80-100); Monocytes Absolute Auto 500 /uL (0-900); Monocytes Percent Auto 5.4 % (3-14); Neutrophils Absolute Auto 6600 /uL (1500-7000); Platelet Count 192 X10^3/uL (150-400); Red Blood Cell Count 3.96 X10^6/uL (4.0-5.2); Red Cell Distribution Width 14.9 % (11.6-14.8)
[2021-07-18 20:01] VITALS: BP 114/68
[2021-07-18] MEDS: ZOLPIDEM 5 MG TABLET PO (21:00)
[2021-07-18 21:10] LABS: COVID19 - ADMIT (NP swab/PCR) Negative (Negative)
[2021-07-19] MEDS: LACTATED RINGERS 1,000 ML 100 ML IV (02:09)
[2021-07-19] MEDS: fentaNYL 100 MCG/2 ML INJ 50 MCG IV ×2 (02:09→02:50)
--- NOTE | 2021-07-19 06:49 | P.HPOB_ITS ---
OB HPI Date/Time Date of admission: 07/18/21 Date Patient Seen: 07/19/21 Time Patient Seen: 06:45 History of Present Condition Chief complaint: Induction : 1 Para: 0 Estimated Date of Delivery: 07/20/21 Estimated Gestational Age (weeks): 39w6d Narrative: Bertha Porter is a 21 year old at 39 weeks and 6 days here for elective induction for maternal discomfort and family scheduling. complicated by bleeding until 15 weeks. She was followed closely for contractions with cervical lengths. Contractions settled down after 32 weeks. Indications Indication for induction OB: maternal discomfort History of Present care: good care, initiated at week # (14), number of visits (15) and pounds weight gain (29) Dating criteria: based on 1st trimester US only Ultrasounds: normal mid trimester US Preadmission Labs Blood type: O (+) positive -: Antibody screen: negative, GBS status: negative, HBsAG: negative, HIV: negative and RPR/VDLR: negative -: Chlamydia screen: not detected and Gonorrhea screen: not detected -: Rubella: immune and Varicella: not immune HCT: 33.3 HCAB: negative 1 hr GTT: 65 Evaluation Evaluation Baseline heart rate: 130 Variability: Moderate (11-25) monitor accelerations: Present Monitor Decelerations: Variable (intermittent) Contraction Frequency (minutes): 4 Status: Category ll Cervical dilation (cm): 10 Cervical effacement (%): 100 station: +1 PFSH Medical History Iron deficiency anemia (~2018) Nasal fracture (~06/2018) Surgical History Anesthesia Hx of tonsillectomy (~2008) Status post breast reduction (~2016) Family History Father Myocardial infarction Stented coronary artery Grandmother Breast cancer Mother No problems noted. Grandmother No problems noted. Grandfather Diabetes mellitus Grandfather Stented coronary artery Social History marital status: number of children: 0 household members: spouse lives independently: Yes caregiver/support person: No housing: house pets and animals: Yes (1 dog: safe & aware. 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 ) Type(s) of exercise: walking (Usually 3-4 times a week.) frequency: does not exercise (Currently refraining from exercise due to vaginal bleeding. ) Meds Home Medications and Allergies Home Medications Medication Instructions Recorded Confirmed Type prenat.vits,teresita,[id number] 1 tab PO DAILY 01/19/21 07/18/21 History Allergies Allergy/AdvReac Type Severity Reaction Status Date / Time No Known Drug Allergies Allergy Verified 03/20/21 14:03 Review of Systems Review of Systems ROS: Yes All systems reviewed with the patient and are negative except as otherwise documented Exam Vital Signs (past 8 hours): T 37.0 BP 109/65 P 114 Const General: healthy appearing and comfortable HENMT Head: normal to inspection Ears: hearing grossly normal bilaterally Nose: external nose normal Face and sinus: normal facial exam Mouth: oral mucosae normal Eyes General: appearance normal, both eyes and all related structures Neck Neck: normal visual inspection Resp Effort & Inspection: normal respiratory effort Auscultation: clear to auscultation bilaterally Cardio Rate: regular rate Rhythm: regular rhythm Heart Sounds: no murmurs GI Other: Gravid External Female Exam: normal external appearance Manual OB Exam: dilated 10, effaced fully and station '+1 Presentation: vertex Estimated Weight (lbs): 7 Amniotic Fluid: clear (AROM) Back/Spine/Pelvis Back: normal to inspection Skin General: no rashes or lesions noted Extrem General: normal to inspection and no pedal edema Objective Labs Result Diagrams: 07/18/21 19:00 Labs: Laboratory Results - last 24 hr 07/18/21 07/18/21 07/18/21 19:00 19:00 19:15 WBC 9.0 RBC 3.96 L Hgb 11.1 L Hct 33.3 L MCV 84.1 MCH 28.0 MCHC 33.4 RDW 14.9 H Plt Count 192 Neut % (Auto) 73.0 Lymph % (Auto) 21.0 L [place] % (Auto) 5.4 Eos % (Auto) 0.3 L Baso % (Auto) 0.3 Neut # (Auto) 6600 Lymph # (Auto) 1900 [place] # (Auto) 500 Eos # (Auto) 0 Baso # (Auto) 0 SARS-CoV-2 (PCR) Negative Blood Type O Positive Antibody Screen Negative Assessment and Plan Assessment and Plan Assessment and Plan narrative: 21 year old at 39 weeks and 6 days. Now complete and laboring down after Cervidil last night. GBS negative. Comfortable with epidural. Anticipate .
[2021-07-19] MEDS: OXYTOCIN PREMIX 30 UNIT/500 ML PLAST..BAG IV (07:38)
--- NOTE | 2021-07-19 08:29 | PM.OBPRVD ---
Labor & Delivery Delivery date: 07/19/21 Cervical ripening method: per Cervidil protocol Delivery augmentation: rupture of membranes Delivery monitor: external FHT Route of delivery: L&D Laceration Description: Vaginal - 2nd Degree Delivery repair: chromic Estimated blood loss (mL): 350 Anesthesia Type: Epidural Narrative: VAGINAL DELIVERY NOTE Patient is a 21-year-old at 39 weeks and 6 days gestation who gave via on 07/19/21 at 8:00 a.m.. Hospital problems: 39 weeks of Epidural analgesia STAGE I: Labor Patient was admitted for elective induction. She received Cervidil however was removed after 6 hours due to progression and active labor. She went on to receive an epidural with excellent pain control. Artificial rupture membranes at 6:45 a.m. with clear fluid. Patient was complete at the time. heart tones were category 1 and 2 throughout stage I due to intermittent variable decelerations. Patient labored down for 30 minutes while awaiting rectal pressure prior to initiation of pushing. STAGE II: Delivery Patient pushed for approximately 40 minutes. She went on to deliver a vigorous male infant. Infant was vertex and KERRI. He was immediately placed on mother's abdomen. Cord was clamped and cut after 1 minute delay. Apgars were 9 and 9. No resuscitation of the required. weight 3303 g. STAGE III: Placenta/Cord Placenta delivered at 8:08 a.m. after active management and appeared intact with a three-vessel cord. Pitocin bolus given after delivery of placenta. A second-degree bleeding vaginal laceration was repaired with 3-0 Vicryl in the usual fashion. Due to persistent bleeding after repair, an additional figure of 8 stitch was placed with good hemostasis. Uterine fundus firm below umbilicus after repair. EBL 350 mL. Needle and sponge counts were correct. The vagina was inspected and no items were left in situ. Patient was doing well with Ciro, her and at bedside. Baby 1: Infant gender: Male Presentation: vertex Position: Right Occiput Anterior Placenta delivery description: Spontaneous Cord Vessel Description: 3 Vessels score (1 min): 9 score (5 min): 9 Plan for aftercare: Routine care
[2021-07-19] MEDS: FERROUS SULFATE 325 MG TABLET PO (14:01)
[2021-07-19] MEDS: DERMOPLAST SPRAY 20% 60 ML 1 SPRAY TOP (14:01)
[2021-07-19] MEDS: IBUPROFEN 600 MG TABLET PO (14:02)
[2021-07-20] MEDS: IBUPROFEN 600 MG TABLET PO (01:37)
--- NOTE | 2021-07-20 08:04 | P.DS_ITS ---
Discharge Providers Provider Date of admission: 07/18/21 18:29 Discharge Date: 07/20/21 Primary care physician: Tatum Mendenhall DO Consults: 07/20/21 08:29 Consult to Geography Teacher Routine Comment: Discharge provider: Tatum Mendenhall DO Summary Hospital Course Date Patient Seen: 07/20/21 Diagnoses: Spontaneous vaginal delivery 39 weeks of Hospital Course: Patient is a 21-year-old G1 now P1 after uncomplicated spontaneous vaginal delivery at 39 weeks and 6 days. Patient came in for elective induction and progressed well after Cervidil only. She went on to receive an epidural with excellent pain control. She delivered a vigorous male infant without complications. A second-degree vaginal laceration was repaired in the usual fashion. course uncomplicated. Pain was well controlled with minimal ibuprofen and bleeding light. She was ambulating, voiding and eating without difficulty. She elected not to breast-feed due to breast reduction and will bottle feed. She does want to try to pump. Advised patient to call for fevers, severe pain or bleeding through more than a pad an hour. She will follow-up in clinic in 6 weeks. Peripartum Data Delivery Method: Natural Vaginal Laceration Description: Vaginal - 2nd Degree [place] 1: Gender: Male Disposition of : home Status at Discharge Cognitive/behavioral status at discharge: at baseline, oriented Functional status at discharge: independent ambulation Overall status at discharge: patient is progressing back to baseline Time Spent with Patient Time attestation: Total time spent providing and/or coordinating discharge services: 15 min Objective Labs Result Diagrams: 07/18/21 19:00 Exam Vital Signs (past 8 hours): Temperature 98.1? blood pressure 123/76 heart rate 89 respirations 16 General: Awake and alert, no acute distress. HEENT: NCAT, EOMI, moist oral mucosa CV: Regular rate and rhythm, no murmurs, rubs or gallops Lungs: CTAB, no wheezes, rales, or rhonchi Abdomen: Soft, nontender; bowel tones active; uterus firm 1 cm below umbilicus Extremities: Warm, no edema, 2+ pedal pulses bilaterally Discharge Plan Discharge Plan Patient Disposition: Home Discharge orders & Medications Prescriptions: New docusate sodium 100 mg Capsule 100 mg PO DAILY Qty: 30 RF: 0 ibuprofen 600 mg Tablet 600 mg PO Q6HR PRN (Reason: Pain, Mild (1-3)) Qty: 30 RF: 0 Continued prenat.vits,teresita,[id number] Tablet 1 tab PO DAILY RF: 0 Follow up/Referrals: Tatum Mendenhall DO [Primary Care Provider] - Visit Report/Discharge Packet Visit Report Forms: Patient Portal/API, Stroke Signs & Symptoms Discharge Data Primary Care Provider: Tatum Mendenhall
[2021-07-20] MEDS: DOCUSATE 100 MG CAPSULE PO (08:35)
[2021-07-20] MEDS: FERROUS SULFATE 325 MG TABLET PO (08:36)
[2021-07-20] MEDS: PRENATAL VIT,CALC/IRON/FOLIC 1 TABLET 1 TAB PO (08:36)
[2021-07-20 11:36] VITALS: BP 121/72; PULSE 65; RESP 17; TEMP 36.8
== END 2021-07-20 12:53 | disposition home or self-care (01) | DRG 807 ==
PROVIDERS: Admitting Provider Family Medicine; PCP Family Medicine; Referring Provider Family Medicine; Visit Provider Family Medicine
DX: O70.1 Second degree perineal laceration during delivery (principal); Z37.0 Single live birth; Z20.822 Contact with and (suspected) exposure to COVID-19; Z3A.39 39 weeks gestation of pregnancy; O76 Abnormality in fetal heart rate and rhythm complicating labor and delivery
CPT/HCPCS: 01967; 36415; 59050; 59400; 85025; 86850; 86900; 86901; 87635; C9803; G0379; J2590; J3010

== ENCOUNTER → 2021-11-05 09:34 | Outpatient (CLI) | payer OTHER, SELFPAY ==
--- NOTE | 2021-11-05 09:34 | DI.US.S_ITS ---
PROCEDURE: US OB <= 14 WEEKS FETUS INDICATIONS: INITIAL VIABILITY DATING OUTSIDE/PRIOR DATING DATA: Last menstrual period (LMP): 09/06/2021. LMP-based estimated date of delivery (KARIN): 06/13/2022. First dating scan (date and location): 11/05/2021. Estimated date of delivery (KARIN) from first dating scan: 07/02/2022. TECHNIQUE: Real-time scanning was performed of the fetus and maternal pelvic organs, with image documentation. Endovaginal scanning was also performed to better visualize the fetus and maternal ovaries. COMPARISON: [facility], OB <= 14 WEEKS FETUS, 01/10/2021, 11:20. [facility], OB >= 14 WEEKS FETUS, 05/09/2021, 13:12. FINDINGS: Embryo: Single live intrauterine is identified with crown-rump length measuring 3 mm corresponding to 5 weeks 6 days. Heart rate: 105 beats per minute Maternal organs: Ovaries demonstrate a left corpus luteal cyst. IMPRESSION: Single live intrauterine is identified measuring 5 weeks 6 days. Recommend followup imaging at 20-22 weeks for dates and anatomy. We strive to produce accurate, complete, and clear reports of imaging services. To assist us in improving patient care, this report was composed using standard report templates and voice recognition software. Therefore, it may contain abnormal punctuation, insertions and/or omissions. Occasional wrong-word or sound-alike substitutions may occur. Though we review the report and make efforts to correct it, we do recommend that the report be read carefully in proper context to recognize any text inaccuracies. Dictated by: Theresa Benson M.D. on 11/05/2021 at 16:15 Approved by: Theresa Benson M.D. on 11/05/2021 at 16:17
== END ==
PROVIDERS: PCP Family Medicine; Referring Provider Family Medicine; Visit Provider Family Medicine
DX: Z34.81 Encounter for supervision of other normal pregnancy, first trimester (principal); Z3A.01 Less than 8 weeks gestation of pregnancy
CPT/HCPCS: 76801; 76817

== ENCOUNTER → 2021-11-06 10:31 | Outpatient (CLI) | payer OTHER, SELFPAY ==
[2021-11-06 11:20] LABS: Appearance Urine UA CLEAR; Bilirubin Urine UA NEGATIVE (NEGATIVE); Color Urine UA YELLOW; Glucose Urine UA NEGATIVE (Negative); Ketones Urine UA NEGATIVE (NEGATIVE); Leukocyte Esterase Urine UA NEGATIVE (NEGATIVE); Nitrite Urine UA NEGATIVE (Negative); Occult Blood Urine UA NEGATIVE (Negative); Protein Urine UA NEGATIVE (Negative); Urobilinogen Urine UA 0.2 E.U./dL (0.2)
[2021-11-06 11:22] LABS: pH Urine UA 6.5 (4.5-8.0)
[2021-11-06 11:33] LABS: Add Manual Diff / Slide Review NO; Basophils Absolute Auto 0 /uL (0-100); Basophils Percent Auto 0.4 % (0-2); Eosinophils Absolute Auto 0 /uL (0-450); Eosinophils Percent Auto 0.5 % (2-4); Hematocrit 35.9 % (36-46); Hemoglobin 12.1 g/dL (12.0-16.0); Lymphocytes Absolute Auto 1800 /uL (1100-4500); Lymphocytes Percent Auto 37.8 % (25-40); Mean Corpuscular HGB Conc 33.6 % (30-36); Mean Corpuscular Hemoglobin 27.8 PG (26-34); Mean Corpuscular Volume 82.7 fL (80-100); Monocytes Absolute Auto 300 /uL (0-900); Monocytes Percent Auto 5.7 % (3-14); Neutrophils Absolute Auto 2700 /uL (1500-7000); Neutrophils Percent Auto 55.6 % (50-75); Platelet Count 212 X10^3/uL (150-400); Red Blood Cell Count 4.34 X10^6/uL (4.0-5.2); Red Cell Distribution Width 14.9 % (11.6-14.8); White Blood Cell Count 4.9 X10^3/uL (4.5-11.0)
[2021-11-06 18:59] LABS: HIV 1 & 2 Ab/Ag 4th Gen Combo NEGATIVE (NEGATIVE); Hep C Virus Ab w/Reflex Quant NEGATIVE s/c (NEGATIVE)
[2021-11-06 20:26] LABS: Hepatitis B Surface Antigen NEGATIVE s/c (NEGATIVE); Rubella Antibody IgG 7.4 IU/mL (>15)
[2021-11-07 06:04] LABS: RPR Screen Non Reactive (Non Reactive)
[2021-11-07 08:14] LABS: Varicella IgG Antibody <135 index (Immune >165)
== END ==
PROVIDERS: PCP Family Medicine; Referring Provider Family Medicine; Visit Provider Family Medicine
DX: Z34.81 Encounter for supervision of other normal pregnancy, first trimester (principal)
CPT/HCPCS: 36415; 80055; 81003; 86787; 86803; 86850; 86900; 86901; 87086; 87389